=== PATIENT | male | born 1965 | race Caucasian/White ===

== ENCOUNTER 2024-02-25 06:29 | Day surgery (SDC) | payer BC, OTHER ==
[~2024-02-25 06:29] MED LIST: Midazolam 1 MG/ML 2 ML SDV ONE; fentaNYL 100 MCG/2 ML SDV ONE
[2024-02-25] MEDS ORDERED: Midazolam 1 MG/ML 2 ML SDV IV ONE (06:30)
[2024-02-25] MEDS ORDERED: fentaNYL 100 MCG/2 ML SDV IV ONE (06:30)
[2024-02-25] MEDS: Dextrose 5%-0.45% NaCl 1,000 ML IV SCH (06:54)
[2024-02-25] MEDS: fentaNYL 100 MCG/2 ML SDV IV ONE ×2 (08:13→08:14)
[2024-02-25] MEDS: Midazolam 1 MG/ML 2 ML SDV IV ONE ×5 (08:14→08:26)
== END 2024-02-25 10:14 | disposition home or self-care (01) ==
LOC: DL.ENDO 06:29
PROVIDERS: ATTEND Internal Medicine Gastroenterology
DX: Z12.11 Encounter for screening for malignant neoplasm of colon (principal); K57.30 Diverticulosis of large intestine without perforation or abscess without bleeding; K64.8 Other hemorrhoids; D12.0 Benign neoplasm of cecum; D12.4 Benign neoplasm of descending colon; D12.8 Benign neoplasm of rectum; F32.A Depression, unspecified; E66.09 Other obesity due to excess calories; Z68.31 Body mass index [BMI] 31.0-31.9, adult; E78.00 Pure hypercholesterolemia, unspecified
CPT/HCPCS: J2250; J3010; J7799